=== PATIENT | female | born 1960 | race African-American/Black ===

== ENCOUNTER 2021-07-19 13:27 | Outpatient (CLI) | payer OTHER | END 2021-07-19 13:28 | disposition home or self-care (01) | LOC: BICMAMMO 13:27 | PROVIDERS: ATTEND Specialist | DX: N63.11 Unspecified lump in the right breast, upper outer quadrant (principal) | CPT/HCPCS: 77066; G0279 ==

== ENCOUNTER 2023-09-25 13:46 | Outpatient (CLI) | payer BC | END 2023-09-25 13:47 | disposition home or self-care (01) | LOC: BICULT 13:46 | PROVIDERS: ATTEND Family Medicine | DX: E04.1 Nontoxic single thyroid nodule (principal) | CPT/HCPCS: 76536 ==

== ENCOUNTER 2023-09-27 13:58 | Outpatient (CLI) | payer BC ==
[~2023-09-27 13:58] MED LIST: Magnevist 469MG/ML 20 ML VIAL ONE
== END 2023-09-27 13:59 | disposition home or self-care (01) ==
LOC: MRI 13:58
PROVIDERS: ATTEND Internal Medicine Cardiovascular Disease
DX: R41.82 Altered mental status, unspecified (principal); R90.82 White matter disease, unspecified; R93.0 Abnormal findings on diagnostic imaging of skull and head, not elsewhere classified
CPT/HCPCS: 70553

== ENCOUNTER 2024-06-01 11:28 | Inpatient (IN) | payer MEDICARE ==
[2024-06-01 12:50] LABS: #Basophils 0.05 10x3/uL (0.0-0.2); %Basophils 0.6 % (0.0-1.0); %Lymphocytes 34.8 % (21.0-51.0); %Monocytes 9.1 % (0.0-10.0); %Neutrophils 54.3 % (42.0-75.0); Hematocrit 45.6 % (36.0-47.0); Hemoglobin 14.9 g/dL (12.0-16.0); Mean Corpuscular HGB CONC 32.7 g/dL (32.0-36.0); Mean Corpuscular Hemoglobin 30.7 pg (27.0-31.0); Mean Platelet Volume 9.3 fL (7.4-10.4); Platelet Count 197 10x3/uL (130-400); RBC Distribution Width 12.3 % (11.5-14.5); Red Blood Cell (RBC) Count 4.85 mill/uL (4.20-5.40)
[2024-06-01 13:08] LABS: ALT (SGPT) 38 U/L (8-55); AST (SGOT) 69 U/L (5-34); Albumin 3.3 g/dL (3.4-4.8); Alkaline Phosphatase 87 U/L (40-110); Anion Gap 11 mmol/L (10-20); BUN (Urea Nitrogen) 12 mg/dL (9.8-20.1); Calc. Creatinine Clearance 0 mL/min (70-130); Calcium 9.2 mg/dL (7.8-10.44); Carbon Dioxide 19 mmol/L (23-31); Chloride 110 mmol/L (98-107); Estimated GFR 69; Globulin 3.8 g/dL (2.4-3.5); Glucose 97 mg/dL (80-115); Protein, Total 7.1 g/dL (5.8-8.1); Sodium 136 mmol/L (136-145)
[2024-06-01] MEDS ORDERED: Iopamidol-370 76% 500 ML MDV (1 ML CHARGE) ONE (15:42)
[2024-06-01 16:23] LABS: Bacteria/HPF None Seen HPF (None Seen); Bilirubin Negative (Negative); Blood, Urine Negative (Negative); CAUTI Indications for Culture Alt mental st,lethar; Clarity Clear (Clear); Glucose, Urine (Dipstick) Normal (Negative); Ketone, Urine Negative (Negative); Leukocyte Negative Leu/uL (Negative); Nitrite Negative (Negative); Protein, Urine (Dipstick) Negative (Neg-Trace); RBC/HPF 0-3 HPF (0-3); Specific Gravity, Urine 1.042 (1.002-1.036); Squamous Epithelial 0-3 HPF (0-3); Urobilinogen Normal mg/dL (Less than 2); WBC/HPF 0-3 HPF (0-3)
[2024-06-01 16:24] LABS: Urine Culture Reflex No No
[2024-06-01] MEDS ORDERED: Bisacodyl 10 MG SUPP PR PRN (17:19)
[2024-06-01] MEDS ORDERED: Bisacodyl 5 MG TAB PO PRN (17:19)
[2024-06-01] MEDS ORDERED: Senokot S 8.6-50 MG TAB PO PRN (17:19)
[2024-06-01 17:58] LABS: Magnesium 1.8 mg/dL (1.6-2.6)
[2024-06-01 18:58] VITALS: BMI 24.6
[2024-06-01] MEDS: Atorvastatin Calcium 40 MG TAB PO SCH (20:53)
[2024-06-01] MEDS: Aspirin 325 mg Enteric Coated Tablet PO SCH (20:53)
[2024-06-01] MEDS: Magnesium 2 GM/50 ML(in water) 2 GM in Premix 1 BAG IVPB SCH (20:53)
[2024-06-01] MEDS: Sodium Chloride 0.9% 1,000 ML IV SCH (20:54)
[2024-06-02] MEDS: Acetaminophen 325 MG TAB PO SCH (00:16)
[2024-06-02 04:49] LABS: #Basophils 0.04 10x3/uL (0.0-0.2); %Basophils 0.4 % (0.0-1.0); %Eosinophils 0.5 % (0.0-10.0); %Lymphocytes 38.1 % (21.0-51.0); %Monocytes 8.5 % (0.0-10.0); %Neutrophils 52.2 % (42.0-75.0); Hematocrit 41.7 % (36.0-47.0); Hemoglobin 14.3 g/dL (12.0-16.0); Mean Corpuscular HGB CONC 34.3 g/dL (32.0-36.0); Mean Corpuscular Volume 90.3 fL (78.0-98.0); Mean Platelet Volume 9.3 fL (7.4-10.4); Platelet Count 219 10x3/uL (130-400); RBC Distribution Width 12.2 % (11.5-14.5); Red Blood Cell (RBC) Count 4.62 mill/uL (4.20-5.40)
[2024-06-02 04:56] LABS: Actual Bicarbonate (HCO3v) 22.6 mEq/L (22-28); Base Excess -1.4 mEq/L (-2.0 to +3.0); Calcium, Ionized (venous) 1.21 mmol/L (1.16-1.32); Chloride (VBG) 107 mmol/L (98-106); Hematocrit-VBG 44 % (36.0-47.0); Hemoglobin (Hb) 15.1 g/dL (11.7-16.1); Sodium 139 mmol/L (133-146); pH (venous) 7.413 (7.32-7.43)
[2024-06-02 05:05] LABS: ALT (SGPT) 35 U/L (8-55); AST (SGOT) 60 U/L (5-34); Albumin 3.1 g/dL (3.4-4.8); Alkaline Phosphatase 83 U/L (40-110); Bilirubin, Direct 0.5 mg/dL (0.1-0.3); Protein, Total 6.7 g/dL (5.8-8.1)
[2024-06-02 05:15] LABS: Anion Gap 10 mmol/L (10-20); BUN (Urea Nitrogen) 11 mg/dL (9.8-20.1); Calc. Creatinine Clearance 75 mL/min (70-130); Calcium 9.2 mg/dL (7.8-10.44); Carbon Dioxide 22 mmol/L (23-31); Cardiac Risk 2.7 (Less than 4.5); Chloride 109 mmol/L (98-107); Cholesterol 117 mg/dl (< 200 Desired); Estimated GFR 83; Glucose 83 mg/dL (80-115); HDL Cholesterol 43 mg/dL (>60 Neg Risk); LDL Cholesterol, Calculated 63 mg/dL; Magnesium 2.5 mg/dL (1.6-2.6); Potassium 3.8 mmol/L (3.5-5.1); Sodium 137 mmol/L (136-145); Triglycerides 56 mg/dL (Less than 150)
[2024-06-02] MEDS: Aspirin 81 mg Enteric Coated Tablet PO SCH (11:25)
[2024-06-02] MEDS: Apixaban 5 MG TAB PO SCH (20:06)
[2024-06-03] MEDS ORDERED: Labetalol HCl 100 MG/20 ML VIAL SLOW IVP PRN (04:35)
[2024-06-03] MEDS: hydrALAZINE 20 MG/ML VIAL SLOW IVP PRN (04:59)
[2024-06-03 05:03] LABS: #Basophils 0.05 10x3/uL (0.0-0.2); %Basophils 0.6 % (0.0-1.0); %Monocytes 11.4 % (0.0-10.0); %Neutrophils 36.8 % (42.0-75.0); Hemoglobin 15.5 g/dL (12.0-16.0); Mean Corpuscular HGB CONC 33.7 g/dL (32.0-36.0); Mean Platelet Volume 9.3 fL (7.4-10.4); Platelet Count 232 10x3/uL (130-400); RBC Distribution Width 12.3 % (11.5-14.5)
[2024-06-03 05:21] LABS: Anion Gap 13 mmol/L (10-20); BUN (Urea Nitrogen) 12 mg/dL (9.8-20.1); Calc. Creatinine Clearance 66 mL/min (70-130); Calcium 9.6 mg/dL (7.8-10.44); Carbon Dioxide 22 mmol/L (23-31); Chloride 107 mmol/L (98-107); Estimated GFR 71; Glucose 77 mg/dL (80-115); Magnesium 2.1 mg/dL (1.6-2.6); Potassium 3.6 mmol/L (3.5-5.1); Sodium 138 mmol/L (136-145)
[2024-06-03 11:04] VITALS: BMI 24.4
[2024-06-03] MEDS: Lisinopril 10 MG TAB PO SCH (20:53)
[2024-06-04 05:01] LABS: #Basophils 0.05 10x3/uL (0.0-0.2); %Basophils 0.6 % (0.0-1.0); %Eosinophils 0.9 % (0.0-10.0); %Lymphocytes 41.3 % (21.0-51.0); %Monocytes 8.8 % (0.0-10.0); Hematocrit 45.6 % (36.0-47.0); Hemoglobin 15.4 g/dL (12.0-16.0); Mean Corpuscular HGB CONC 33.8 g/dL (32.0-36.0); Mean Corpuscular Hemoglobin 30.8 pg (27.0-31.0); Mean Corpuscular Volume 91.2 fL (78.0-98.0); Mean Platelet Volume 9.9 fL (7.4-10.4); Platelet Count 222 10x3/uL (130-400); RBC Distribution Width 12.4 % (11.5-14.5)
[2024-06-04 05:14] LABS: Anion Gap 13 mmol/L (10-20); BUN (Urea Nitrogen) 18 mg/dL (9.8-20.1); Calc. Creatinine Clearance 61 mL/min (70-130); Calcium 9.3 mg/dL (7.8-10.44); Carbon Dioxide 19 mmol/L (23-31); Chloride 111 mmol/L (98-107); Estimated GFR 66; Glucose 81 mg/dL (80-115); Potassium 3.6 mmol/L (3.5-5.1); Sodium 139 mmol/L (136-145)
[2024-06-04 10:39] VITALS: BP 150/80; TEMP 98.4
== END 2024-06-04 11:29 | disposition home health service (06) | DRG 64 ==
LOC: SUATTDRO 11:28 → ERS 11:28 → 2NO 17:35 → OBSVTOIN 06-02 12:54
PROVIDERS: ADMIT Family Medicine; ATTEND Internal Medicine
PROC: 4A00X4Z Measurement of Central Nervous Electrical Activity, External Approach (ICD-10-PCS; principal; 2024-06-02)
DX: I63.9 Cerebral infarction, unspecified (principal); G93.41 Metabolic encephalopathy; R57.8 Other shock; I69.854 Hemiplegia and hemiparesis following other cerebrovascular disease affecting left non-dominant side; R00.1 Bradycardia, unspecified; I48.91 Unspecified atrial fibrillation; Z90.710 Acquired absence of both cervix and uterus; Z79.899 Other long term (current) drug therapy; F01.50 Vascular dementia, unspecified severity, without behavioral disturbance, psychotic disturbance, mood disturbance, and anxiety; Z79.01 Long term (current) use of anticoagulants; E78.5 Hyperlipidemia, unspecified; Z66 Do not resuscitate; Z79.82 Long term (current) use of aspirin
CPT/HCPCS: 36415; 70496; 70498; 70551; 80048; 80053; 80061; 80076; 81001; 82805; 83735; 84443; 85025; 86850; 86900; 86901; 93005; 95700; 95711; 95819; 96374; G0378; J0360; J3475; J7030; Q9967

== ENCOUNTER 2024-07-03 11:32 | Inpatient (IN) | payer MEDICARE ==
[2024-07-03 12:47] LABS: #Basophils 0.06 10x3/uL (0.0-0.2); %Basophils 0.8 % (0.0-1.0); %Eosinophils 0.6 % (0.0-10.0); %Monocytes 9.7 % (0.0-10.0); %Neutrophils 58.3 % (42.0-75.0); Hematocrit 41.2 % (36.0-47.0); Hemoglobin 13.5 g/dL (12.0-16.0); Mean Corpuscular HGB CONC 32.8 g/dL (32.0-36.0); Mean Corpuscular Hemoglobin 30.8 pg (27.0-31.0); Mean Corpuscular Volume 94.1 fL (78.0-98.0); Mean Platelet Volume 9.2 fL (7.4-10.4); Platelet Count 264 10x3/uL (130-400); Red Blood Cell (RBC) Count 4.38 mill/uL (4.20-5.40)
[2024-07-03 13:04] LABS: ALT (SGPT) 34 U/L (8-55); AST (SGOT) 59 U/L (5-34); Albumin 3.3 g/dL (3.4-4.8); Alkaline Phosphatase 89 U/L (40-110); Anion Gap 11 mmol/L (10-20); BUN (Urea Nitrogen) 15 mg/dL (9.8-20.1); Bilirubin, Total 0.7 mg/dL (0.2-1.2); Calc. Creatinine Clearance 0 mL/min (70-130); Calcium 9.2 mg/dL (7.8-10.44); Carbon Dioxide 22 mmol/L (23-31); Chloride 110 mmol/L (98-107); Estimated GFR 55; Globulin 3.8 g/dL (2.4-3.5); Glucose 101 mg/dL (80-115); Protein, Total 7.1 g/dL (5.8-8.1); Sodium 139 mmol/L (136-145)
[2024-07-03 13:09] LABS: Troponin I Less than 0.010 ng/mL (< 0.028)
[2024-07-03] MEDS ORDERED: Ondansetron ODT 4 MG TAB PO PRN (17:13)
[2024-07-03] MEDS ORDERED: Bisacodyl 5 MG TAB PO PRN (17:13)
[2024-07-03 17:27] VITALS: BMI 24.0
[2024-07-03] MEDS: Acetaminophen 325 MG TAB PO SCH (18:07)
[2024-07-04 04:51] LABS: #Basophils 0.05 10x3/uL (0.0-0.2); %Basophils 0.6 % (0.0-1.0); %Eosinophils 0.9 % (0.0-10.0); %Lymphocytes 41.8 % (21.0-51.0); %Monocytes 9.6 % (0.0-10.0); %Neutrophils 46.9 % (42.0-75.0); Hematocrit 38.9 % (36.0-47.0); Hemoglobin 12.5 g/dL (12.0-16.0); Mean Corpuscular HGB CONC 32.1 g/dL (32.0-36.0); Mean Corpuscular Hemoglobin 30.1 pg (27.0-31.0); Mean Corpuscular Volume 93.7 fL (78.0-98.0); Platelet Count 234 10x3/uL (130-400); Red Blood Cell (RBC) Count 4.15 mill/uL (4.20-5.40)
[2024-07-04 04:58] LABS: Anion Gap 12 mmol/L (10-20); BUN (Urea Nitrogen) 13 mg/dL (9.8-20.1); Calc. Creatinine Clearance 64 mL/min (70-130); Calcium 8.9 mg/dL (7.8-10.44); Carbon Dioxide 23 mmol/L (23-31); Chloride 110 mmol/L (98-107); Estimated GFR 73; Glucose 78 mg/dL (80-115); Potassium 3.5 mmol/L (3.5-5.1); Sodium 141 mmol/L (136-145)
[2024-07-04] MEDS: Aspirin 81 mg Enteric Coated Tablet PO SCH (08:18)
[2024-07-04] MEDS ORDERED: Lisinopril 10 MG TAB PO SCH (09:00)
[2024-07-06 04:14] LABS: #Basophils 0.06 10x3/uL (0.0-0.2); %Basophils 0.7 % (0.0-1.0); %Eosinophils 1.2 % (0.0-10.0); %Lymphocytes 42.2 % (21.0-51.0); %Neutrophils 46.3 % (42.0-75.0); Hematocrit 40.3 % (36.0-47.0); Hemoglobin 13.5 g/dL (12.0-16.0); Mean Corpuscular HGB CONC 33.5 g/dL (32.0-36.0); Mean Corpuscular Hemoglobin 30.5 pg (27.0-31.0); Mean Corpuscular Volume 91.2 fL (78.0-98.0); Mean Platelet Volume 9.5 fL (7.4-10.4); Platelet Count 225 10x3/uL (130-400); RBC Distribution Width 12.8 % (11.5-14.5); Red Blood Cell (RBC) Count 4.42 mill/uL (4.20-5.40)
[2024-07-06 04:39] LABS: ALT (SGPT) 30 U/L (8-55); AST (SGOT) 52 U/L (5-34); Albumin 2.9 g/dL (3.4-4.8); Alkaline Phosphatase 103 U/L (40-110); Anion Gap 13 mmol/L (10-20); BUN (Urea Nitrogen) 17 mg/dL (9.8-20.1); Bilirubin, Total 0.5 mg/dL (0.2-1.2); Calc. Creatinine Clearance 57 mL/min (70-130); Calcium 9.2 mg/dL (7.8-10.44); Carbon Dioxide 22 mmol/L (23-31); Chloride 109 mmol/L (98-107); Estimated GFR 64; Globulin 3.5 g/dL (2.4-3.5); Glucose 89 mg/dL (80-115); Magnesium 1.9 mg/dL (1.6-2.6); Potassium 3.7 mmol/L (3.5-5.1); Protein, Total 6.4 g/dL (5.8-8.1); Sodium 140 mmol/L (136-145)
[2024-07-06] MEDS: Amlodipine 5 MG TAB PO SCH ×2 (17:22→21:48)
[2024-07-07] MEDS: Amlodipine 5 MG TAB PO SCH (08:33)
[2024-07-07] MEDS ORDERED: Amlodipine 5 MG TAB PO SCH ×2 (09:00)
[2024-07-08] MEDS ORDERED: Iopamidol 370 76% 100 ML VIAL ONE (10:32)
[2024-07-08] MEDS: Sodium Chloride 0.9% 1,000 ML IV SCH (15:30)
[2024-07-08] MEDS ORDERED: PROPOFOL 40 ML ONE (15:51)
[2024-07-08] MEDS ORDERED: Propofol 1,000 MG/100 ML VIAL IV ONE (15:51)
[2024-07-08] MEDS ORDERED: Glycopyrrolate 0.2 MG/ML 5 ML SYRINGE ONE (15:51)
[2024-07-08] MEDS ORDERED: fentaNYL 50 mcg/mL 1 mL Vial ONE (16:02)
[2024-07-08] MEDS ORDERED: PHENYLEPHRINE-NS 100 MCG/ML 10 ML SYRINGE ONE (16:05)
[2024-07-08] MEDS ORDERED: CEFAZOLIN 2 GM VIAL ONE (16:13)
[2024-07-08] MEDS ORDERED: Heparin 10,000 UNITS/ 10 ML VIAL ONE (16:13)
[2024-07-08] MEDS ORDERED: Propofol 500 MG/50 ML VIAL ONE (16:45)
[2024-07-08] MEDS ORDERED: Ondansetron HCl/PF 4 MG/2 ML Vial IVP PRN (17:22)
[2024-07-08] MEDS ORDERED: Promethazine HCl 25 MG/ML VIAL IM PRN (17:22)
[2024-07-09] MEDS: Acetaminophen 325 MG TAB PO PRN (08:28)
[2024-07-09 15:58] VITALS: BP 161/94; TEMP 97.3
== END 2024-07-09 18:14 | disposition home health service (06) | DRG 229 ==
LOC: ERS 11:32 → ERHOLD 14:40 → 2SW 17:06 → OBSVTOIN 07-05 07:56
PROVIDERS: ADMIT Student in an Organized Health Care Education/Training Program; ATTEND Internal Medicine
PROC: 02HK3NZ Insertion of Intracardiac Pacemaker into Right Ventricle, Percutaneous Approach (ICD-10-PCS; principal; 2024-07-08)
DX: I49.5 Sick sinus syndrome (principal); I69.354 Hemiplegia and hemiparesis following cerebral infarction affecting left non-dominant side; I48.19 Other persistent atrial fibrillation; I45.2 Bifascicular block; R00.1 Bradycardia, unspecified; I10 Essential (primary) hypertension; E86.1 Hypovolemia; I95.9 Hypotension, unspecified; Z79.82 Long term (current) use of aspirin
CPT/HCPCS: 33274; 36415; 36416; 70551; 71045; 80048; 80053; 83605; 83735; 84443; 84484; 85025; 93005; 93010; 93306; 96360; 96361; C1760; C1769; C1786; C1894; G0378; J1644; J2704; J3010; J7030

== ENCOUNTER 2024-08-01 08:57 | Outpatient (CLI) | payer MEDICARE | END 2024-08-01 08:58 | disposition home or self-care (01) | LOC: CT 08:57 | PROVIDERS: ATTEND Internal Medicine Cardiovascular Disease | DX: Z86.73 Personal history of transient ischemic attack (TIA), and cerebral infarction without residual deficits (principal); I67.4 Hypertensive encephalopathy; I67.89 Other cerebrovascular disease; I61.8 Other nontraumatic intracerebral hemorrhage; G31.89 Other specified degenerative diseases of nervous system | CPT/HCPCS: 70450 ==

== ENCOUNTER 2024-08-01 14:56 | Outpatient (CLI) | payer MEDICARE | END 2024-08-01 14:57 | disposition home or self-care (01) | LOC: BICMAMMO 14:56 | PROVIDERS: ATTEND Family Medicine | DX: Z12.31 Encounter for screening mammogram for malignant neoplasm of breast (principal); Z80.3 Family history of malignant neoplasm of breast | CPT/HCPCS: 77063; 77067 ==

== ENCOUNTER 2024-10-24 07:28 | Outpatient (CLI) | payer MEDICARE | END 2024-10-24 07:29 | disposition home or self-care (01) | LOC: BICCT 07:28 | PROVIDERS: ATTEND Internal Medicine Cardiovascular Disease | DX: Z09 Encounter for follow-up examination after completed treatment for conditions other than malignant neoplasm (principal); Z86.73 Personal history of transient ischemic attack (TIA), and cerebral infarction without residual deficits; R90.82 White matter disease, unspecified | CPT/HCPCS: 70450 ==